=== PATIENT | female | born 1995 | race Caucasian/White ===

== ENCOUNTER 2018-04-14 15:46 | Emergency (ER) | payer OTHER ==
[~2018-04-14] VITALS: Ht 172.7 cm; Wt 79.5 kg
[2018-04-14 15:48] VITALS: TEMP 99.6
[2018-04-14 16:35] LABS: MUCOUS Present /lpf; PH 5 (5-8); SQUAMOUS EPITHELIAL 0-2 /hpf; URINE APPEARANCE Hazy; URINE BACTERIA None Seen /hpf; URINE BILIRUBIN Negative (NEGATIVE); URINE BLOOD 1+ (NEGATIVE); URINE COLOR Yellow; URINE GLUCOSE Negative (NEGATIVE); URINE KETONE Trace (NEGATIVE); URINE LEUKOCYTE ESTERASE Negative (NEGATIVE); URINE NITRATE Negative (NEGATIVE); URINE PROTEIN(semi-quant) 1+ (NEGATIVE)
[2018-04-14] MEDS ORDERED: VITAMIN C500 MG PO (16:46)
[2018-04-14] MEDS ORDERED: MULTIVITAMIN FO1 CAP PO (16:46)
[2018-04-14 17:11] LABS: ANION GAP 8 mmol/L (7-16); BLOOD UREA NITROGEN 12 mg/dL (7-17); CALCIUM 9.7 mg/dL (8.4-10.2); CARBON DIOXIDE 27 mmol/L (22-30); CHLORIDE 105 mmol/L (98-107); CREATININE, serum 0.69 mg/dL (0.52-1.25); GLUCOSE 93 mg/dL (74-106); POTASSIUM 3.5 mmol/L (3.4-5.0); SODIUM 139 mmol/L (137-145)
[2018-04-14] MEDS ORDERED: ZOFRAN 4MG T4 MG/TAB PO (17:19)
[2018-04-14 17:28] LABS: HCG,QUANTITATIVE < 2 mIU/mL (0-5)
[2018-04-14 17:50] VITALS: BP 113/72; PULSE 89
[2018-04-14 18:47] LABS: COLLECTION METHOD CLEAN CATCH
== END 2018-04-14 17:50 | disposition home or self-care (01) ==
LOC: COL.ER 15:46
PROVIDERS: Emergency Medicine
DX: R11.0 Nausea (principal); R19.7 Diarrhea, unspecified; R10.9 Unspecified abdominal pain

== ENCOUNTER 2021-03-26 06:13 | Inpatient (IN) | payer BC ==
[2021-03-26] VITALS (35 sets, daily range): BP systolic 117–165; BP diastolic 62–87; PULSE 77–150; TEMP 97.7–98.4
[~2021-03-26] VITALS: Wt 98.2 kg
[~2021-03-26 06:13] MED LIST: MULTIVITAMIN FO1 CAP PO; VITAMIN C500 MG PO; ZOFRAN 4MG T4 MG/TAB PO
--- NOTE | 2021-03-26 06:20 | NUR ---
Pt ambulatory onto unit with spouse. Complains of jacbo every 3 shayan minutes. FHR monitor and TOCO applied. Vital signs stable. Pt denies any vaginal bleeding, gushing of fluid, or decreased movement. Plan of care is discussed with patient. Will continue to monitor.
[2021-03-26] MEDS ORDERED: NATURAL IRON65 MG (06:35)
[2021-03-26] MEDS ORDERED: PRENATAL TABLET PO (06:35)
--- NOTE | 2021-03-26 06:35 | NUR ---
Dr. Pena on unit reviewing FHR strip. 9181 Dr. Pena's SVE /1. membranes intact.
[2021-03-26] MEDS ORDERED: VITAMINC1000TA (06:36)
[2021-03-26] MEDS ORDERED: STOOL SOFTENER100 M2 PO (06:36)
--- NOTE | 2021-03-26 07:00 | NUR ---
0658 A. Hardacre inserts 18 gauge IV into left forearm. [facility] Discussing plan of care with patient. [address] Pena . AROM. clear fluid noted.
--- NOTE | 2021-03-26 07:17 | NUR ---
This RN at bedside assessing FHR. Tracing maternal heartrate due to maternal position and uncomfortability.
--- NOTE | 2021-03-26 07:50 | NUR ---
[id number] Pt in bathroom voiding and having bowel movement. Off monitors at this time.
[2021-03-26 08:05] LABS: BASO # 0.1 K/mm3 (0.0-0.2); BASO % 0.3 % (0.0-2.0); EOS # 0.1 K/mm3 (0.0-0.7); EOS % 0.4 % (0.0-4.0); GRAN # 15.4 K/mm3 (1.4-6.5); GRAN % 81.3 % (42.2-75.2); HEMOGLOBIN 11.7 g/dl (12.5-16.0); LYMPH # 1.9 K/mm3 (1.2-3.4); LYMPH % 10.3 % (20.0-51.0); MEAN CELL VOLUME 88 fl (80.0-100.0); MEAN CORPUSCULAR HEMOGLOBIN 31 pg (27-31); MEAN CORPUSCULAR HGB CONC 35 g/dl (33.0-37.0); MEAN PLATELET VOLUME 10.1 fl (7.4-10.4); MONO # 1.3 K/mm3 (0.1-0.6); MONO % 7.1 % (1.7-9.3); PLATELET COUNT 274 K/mm3 (130-400); RED BLOOD COUNT 3.77 M/mm3 (4.10-5.30); REDCELL DISTRIBUTION WIDTH-CV 13.1 % (11.5-14.5)
[2021-03-26 08:08] LABS: HEMATOCRIT 33.2 % (37.0-47.0)
--- NOTE | 2021-03-26 09:30 | NUR ---
[id number] Patient sitting upright due to painful contractions and epidural placement. This RN at bedside. FHR monitor picking up maternal heartrate. 0919 Single shot given. Pt tolerates procedure well. Safety precautions discussed. Will continue to monitor.
--- NOTE | 2021-03-26 10:40 | NUR ---
1040 Dr. Pena at patients bedside assessing FHR strip. SVE by Dr. Pena . Pitocin ordered per protocol.
--- NOTE | 2021-03-26 11:35 | NUR ---
1129 Dr. Pena at bedside assessing FHR strip. SVE by Dr Pena /+2.
--- NOTE | 2021-03-26 14:00 | NUR ---
1210 This RN at bedside. Pt starts pushing with contractions. Dr. Pena in and out of room assessing FHR strip and patients pushing. 1330 Dr. Pena in patients room. Bed broken down. Preparing for delivery. Nursery and propellant charge loader are notified. 1334 Randall Castle arrives. 1338 Spontaneous vaginal delivery of viable female . Infant bulb suctioned and stimulated. Infant to mother's chest. Cord stops pulsating. Cord clamped by Dr. Pena and cut by FOB. Anesthesia T. [place] called and increases dose on epidural. 1341 Spontaneous vaginal delivery of placenta. Dr. Pena administers lidocaine to the perineum. 2nd degree repaired. Fundal massage performed. Small amt of bleeding noted. Firm/midline. Pt repositioned and tolerating well. Safety precautions and plan of care discussed. Pt verbalizes understanding.
--- NOTE | 2021-03-26 18:20 | NUR ---
Report recieved. Attempting to breastfeed. Whiteboard updated and POC reviewed. Tucks pads and ice packs to bedside.
--- NOTE | 2021-03-26 20:00 | NUR ---
VS and assessment completed. HR 114. HR regular without murmur. Reports a history of anxiety that has been been "increased" over the duration of the . Infant vigerous at this time.
--- NOTE | 2021-03-26 23:30 | NUR ---
Infant irritable with attempted breastfeed. HR 118 at this time. Denies palpitations. Reports having heightened anxiety throughout the . Currently reports feeling anxious. Lochia scant at this time and fundus firm at the umbilicus.
[2021-03-27 05:20] VITALS: BP 99/58; PULSE 100; TEMP 98
[2021-03-27 08:30] VITALS: BP 121/77; PULSE 102; TEMP 97.9
[2021-03-27] MEDS ORDERED: MOTRIN 800800 MG/TAB PO (08:50)
--- NOTE | 2021-03-27 18:40 | NUR ---
Report receieved. Called out to be discharged. Reviewed discharge education and paperwork at this time. Informed of her last motrin administration and frequency to take. Encouraged to call with questions or concerns. Reports her discharge follow-up appointment is set [place] [facility]. Denied further questions or concerns .
== END 2021-03-27 19:40 | disposition home or self-care (01) | DRG 807 ==
LOC: LDRO 06:13 → LDR 06:20 → OB 17:20
PROVIDERS: ADMIT Obstetrics & Gynecology
PROC: 10E0XZZ Delivery of Products of Conception, External Approach (ICD-10-PCS; principal; 2021-03-26)
PROC: 0KQM0ZZ Repair Perineum Muscle, Open Approach (ICD-10-PCS; 2021-03-26)
PROC: 10907ZC Drainage of Amniotic Fluid, Therapeutic from Products of Conception, Via Natural or Artificial Opening (ICD-10-PCS; 2021-03-26)
DX: O99.344 Other mental disorders complicating childbirth (principal); Z37.0 Single live birth; F41.9 Anxiety disorder, unspecified; F32.A Depression, unspecified; O26.893 Other specified pregnancy related conditions, third trimester; Z67.41 Type O blood, Rh negative; O76 Abnormality in fetal heart rate and rhythm complicating labor and delivery; O48.0 Post-term pregnancy; O70.1 Second degree perineal laceration during delivery; Z3A.41 41 weeks gestation of pregnancy; Z23 Encounter for immunization
CPT/HCPCS: J2590; J2704; J2791; J3010; J7120